=== PATIENT | female | born 2000 | race Hispanic/Latino ===

== ENCOUNTER 2022-08-24 20:41 | Emergency (ER) | payer SELFPAY ==
[~2022-08-24] VITALS: Ht 160 cm; Wt 55.6 kg
[2022-08-24 20:42] VITALS: BP 111/68; TEMP 97.6; O2SAT 99
== END 2022-08-24 22:03 | disposition left against medical advice (07) ==
LOC: M ED 20:41
DX: R04.0 Epistaxis (principal); Z53.21 Procedure and treatment not carried out due to patient leaving prior to being seen by health care provider

== ENCOUNTER 2023-05-27 02:44 | Inpatient (IN) | payer SELFPAY ==
[~2023-05-27] VITALS: Ht 160 cm; Wt 56.8 kg
[2023-05-27] MEDS ORDERED: ECOT81TA5 PO (03:02)
[2023-05-27 03:20] LABS: HEMATOCRIT 31.8 % (36.0-47.0); HEMOGLOBIN 9.4 g/dl (12.0-15.5); MEAN CORPUSCULAR HEMOGLOBIN 20.1 pg (27.0-33.0); MEAN CORPUSCULAR HGB CONC 29.6 g/dl (32.0-36.5); MEAN CORPUSCULAR VOLUME 67.9 fl (80.0-96.0); PLATELET COUNT, AUTOMATED 404 10^3/uL (150-450); RED BLOOD COUNT 4.68 10^6/uL (4.00-5.40); WHITE BLOOD COUNT 5.7 10^3/uL (4.0-10.0)
[2023-05-27 03:42] LABS: AMPHETAMINES LEVEL URINE NEGATIVE (NEGATIVE); BARBITURATES URINE NEGATIVE (NEGATIVE); BENZODIAZEPINES URINE NEGATIVE (NEGATIVE); CANNABINOIDS URINE NEGATIVE (NEGATIVE); COCAINE METABOLITE URINE NEGATIVE (NEGATIVE); METHADONE URINE NEGATIVE (NEGATIVE); OPIATES URINE NEGATIVE (NEGATIVE); PHENCYCLIDINE URINE NEGATIVE (NEGATIVE)
[2023-05-27 03:59] LABS: ALBUMIN 4.3 G/DL (3.2-5.2); ALKALINE PHOSPHATASE 118 U/L (46-116); ALT/SGPT 25 U/L (7.0-40); AST/SGOT 28 U/L (<34); BILIRUBIN,DIRECT 0.2 MG/DL (<0.4); BILIRUBIN,TOTAL 0.5 MG/DL (0.3-1.2); BLOOD UREA NITROGEN 6 MG/DL (9-23); CALCIUM LEVEL 8.7 MG/DL (8.5-10.1); CARBON DIOXIDE LEVEL 21 MMOL/L (20-31); CHLORIDE LEVEL 103 MMOL/L (98-107); CREATININE FOR GFR 0.47 MG/DL (0.55-1.30); GLOMERULAR FILTRATION RATE > 60.0 (>60); GLUCOSE, FASTING 92 MG/DL (60-100); POTASSIUM SERUM 3.6 MMOL/L (3.5-5.1); SALICYLATE LEVEL < 3.0 MG/DL (<30); SODIUM LEVEL 135 MMOL/L (136-145); THYROID STIMULATING HORMONE 1.696 uIU/ML (0.55-4.78)
[2023-05-27 07:55] LABS: HCG, SERUM QUALITATIVE NEGATIVE (NEGATIVE)
[2023-05-27] MEDS ORDERED: MAALOX 30 ML SUSP *UDC PO PRN (10:00)
[2023-05-27] MEDS ORDERED: IBUPROFEN 400MG TAB PO PRN (10:00)
[2023-05-27] MEDS ORDERED: LORazepam 2 MG TAB PO PRN (10:00)
[2023-05-27] MEDS ORDERED: diphenhydrAMINE 25MG CAP PO PRN (10:00)
[2023-05-27] MEDS ORDERED: MOM 30ML SUSPENSION UDC PO PRN (10:00)
[2023-05-27] MEDS ORDERED: ETON68IM SC (11:46)
[2023-05-27] MEDS ORDERED: HOME MED LIST COMPLETE! XX SCH (11:50)
[2023-05-27 11:54] VITALS: BP 100/52
[2023-05-27] MEDS: ONDANSETRON 4MG ORAL DISINTEGRATING TAB PO PRN (12:13)
[2023-05-27] MEDS: THIAMINE 100 MG TAB PO SCH (12:52)
[2023-05-27] MEDS: MULTIVITAMINS/MINERALS THERAP 1 TAB PO SCH (12:52)
[2023-05-27] MEDS: FOLIC ACID 1MG TAB PO SCH (12:52)
[2023-05-27 14:00] VITALS: BP 103/59
[2023-05-27 14:42] VITALS: BP 103/59; TEMP 98.8; O2SAT 97
[2023-05-27 21:46] VITALS: BP 103/64
[2023-05-28 06:21] VITALS: BP 99/62; TEMP 96.5; O2SAT 96
[2023-05-28] MEDS: NICOTINE 21MG/24HR 1 EA TRANSDERMAL TD SCH (08:54)
[2023-05-28] MEDS: NALTREXONE 50 MG TAB PO SCH (11:16)
[2023-05-28] MEDS: ACAMPROSATE CALCIUM 333MG TABLET (CAMPRAL) PO SCH (11:16)
[2023-05-28 14:15] VITALS: BP 99/62
[2023-05-28 18:30] VITALS: BP 108/66; TEMP 97.7; O2SAT 98
[2023-05-28 22:44] VITALS: BP 107/63
[2023-05-28] MEDS: traZODone 50 MG TAB PO PRN (23:00)
[2023-05-29 06:00] VITALS: BP 100/56; TEMP 96.7; O2SAT 100
[2023-05-29] MEDS ORDERED: diphenhydrAMINE 50MG CAP PO PRN (09:35)
[2023-05-29 14:00] VITALS: BP 100/56
[2023-05-29 16:24] VITALS: BP 122/68; TEMP 98; O2SAT 100
[2023-05-29] MEDS: RAMELTEON 8 MG TAB (ROZEREM) PO PRN (20:07)
[2023-05-29 22:30] VITALS: BP 115/77
[2023-05-30 06:28] VITALS: BP 103/58
[2023-05-30 06:35] VITALS: BP 103/58; TEMP 98.6; O2SAT 100
[2023-05-30] MEDS: ACETAMINOPHEN TAB 650MG DOSE (2X325MG) PO PRN (08:45)
[2023-05-30] MEDS ORDERED: ACAM0.05 PO (09:31)
[2023-05-30] MEDS ORDERED: RAME8TAB2 PO (09:31)
[2023-05-30] MEDS ORDERED: NALT50TA4 PO (09:31)
== END 2023-05-30 13:30 | disposition home or self-care (01) | DRG 756 ==
LOC: M ED 02:44 → M ED INP 09:57 → M PSY 11:34
PROVIDERS: ADMIT Student in an Organized Health Care Education/Training Program; ATTEND Student in an Organized Health Care Education/Training Program
DX: F41.9 Anxiety disorder, unspecified (principal); R45.851 Suicidal ideations; F32.A Depression, unspecified; F43.9 Reaction to severe stress, unspecified; F10.229 Alcohol dependence with intoxication, unspecified; F60.3 Borderline personality disorder; Z91.52 Personal history of nonsuicidal self-harm; Z62.810 Personal history of physical and sexual abuse in childhood; Z62.811 Personal history of psychological abuse in childhood; Z81.8 Family history of other mental and behavioral disorders; Z56.0 Unemployment, unspecified; Z79.899 Other long term (current) drug therapy

== ENCOUNTER 2024-09-25 23:55 | Emergency (ER) | payer OTHER, SELFPAY ==
[~2024-09-25] VITALS: Ht 165.1 cm; Wt 58.2 kg
[~2024-09-25 23:55] MED LIST: ACAM0.05 PO; ECOT81TA5 PO; ETON68IM SC; NALT50TA4 PO; RAME8TAB2 PO
[2024-09-26 00:47] LABS: BASO # 0.0 10^3/uL (0.0-0.2); BASO % 0.4 % (0.0-1.0); EOS # 0.0 10^3/uL (0.0-0.5); EOS % 0.9 % (0.0-3.0); LYMPH # 1.0 10^3/uL (1.5-5.0); LYMPH % 22.3 % (24.0-44.0); MONO # 0.5 10^3/uL (0.0-0.8); MONO % 10.6 % (2.0-8.0); NEUTROPHILS # 3.0 10^3/uL (1.5-8.5); NEUTROPHILS % 65.6 % (36.0-66.0); PLATELET COUNT, AUTOMATED 252 10^3/uL (150-450)
[2024-09-26 01:09] LABS: CALCIUM LEVEL 8.8 MG/DL (8.5-10.1); CARBON DIOXIDE LEVEL 21 MMOL/L (20-31); CHLORIDE LEVEL 107 MMOL/L (98-107); CK-MB VALUE MASS < 1.0 NG/ML (<3.6); CPK CREATINE PHOSPHOKINASE 54 U/L (34-145); CREATININE FOR GFR 0.69 MG/DL (0.55-1.30); GLOMERULAR FILTRATION RATE > 90.0 (>60); POTASSIUM SERUM 3.7 MMOL/L (3.5-5.1); SODIUM LEVEL 142 MMOL/L (136-145)
[2024-09-26] MEDS ORDERED: MORPHINE 4 MG/ML 1 ML VIAL IV PRN (01:20)
[2024-09-26] MEDS ORDERED: ISOVUE-370 76% 100 ML VIAL As Ordered ONE (01:24)
[2024-09-26 01:41] LABS: ETHYL ALCOHOL (ETHANOL) 0.003 % (0.000-0.010)
[2024-09-26 01:42] LABS: IRON (FE) 18 UG/DL (50-170); PERCENT SATURATION 4.9 % (13.2-45.0)
[2024-09-26] MEDS: ONDANSETRON 4MG 2ML VIAL IV ONE (02:14)
[2024-09-26 02:26] LABS: CK-MB VALUE MASS < 1.0 NG/ML (<3.6)
[2024-09-26 02:27] LABS: CPK CREATINE PHOSPHOKINASE 50 U/L (34-145)
[2024-09-26 04:47] VITALS: BP 123/72; TEMP 97.5; O2SAT 97
== END 2024-09-26 04:50 | disposition home or self-care (01) ==
LOC: M ED 23:55 → EDBD 23:55 → M ED 09-26 04:50
DX: R07.89 Other chest pain (principal); F41.9 Anxiety disorder, unspecified; F31.9 Bipolar disorder, unspecified; F17.210 Nicotine dependence, cigarettes, uncomplicated; F17.290 Nicotine dependence, other tobacco product, uncomplicated; F10.10 Alcohol abuse, uncomplicated; Z79.899 Other long term (current) drug therapy
CPT/HCPCS: 36415; 71045; 71275; 80048; 82077; 82550; 82553; 82728; 83550; 84484; 85025; 93005; 93041; 94760; 99285; Q9967

== ENCOUNTER 2025-01-03 10:40 | Emergency (ER) | payer OTHER ==
[~2025-01-03] VITALS: Ht 160 cm; Wt 60.2 kg
[2025-01-03] MEDS: LIDOCAINE W/EPINEPHrine 1% 20 ML VIAL SC ONE (11:35)
[2025-01-03] MEDS ORDERED: DOXY-441 PO (11:35)
[2025-01-03 11:36] VITALS: BP 104/67; TEMP 97.4; O2SAT 97
== END 2025-01-03 12:01 | disposition home or self-care (01) ==
LOC: M ED 10:40
DX: L02.416 Cutaneous abscess of left lower limb (principal); F17.200 Nicotine dependence, unspecified, uncomplicated; F41.9 Anxiety disorder, unspecified; F32.A Depression, unspecified; Z87.42 Personal history of other diseases of the female genital tract; Z95.0 Presence of cardiac pacemaker; Z79.2 Long term (current) use of antibiotics

== ENCOUNTER 2025-03-05 13:50 | Emergency (ER) | payer OTHER, SELFPAY ==
[~2025-03-05] VITALS: Ht 160 cm; Wt 59.7 kg
[~2025-03-05 13:50] MED LIST changes: +DOXY-441 PO
[2025-03-05 14:39] LABS: BASO # 0.0 10^3/uL (0.0-0.2); BASO % 0.4 % (0.0-1.0); EOS # 0.0 10^3/uL (0.0-0.5); EOS % 0.6 % (0.0-3.0); LYMPH # 0.8 10^3/uL (1.5-5.0); LYMPH % 16.3 % (24.0-44.0); MONO # 0.4 10^3/uL (0.0-0.8); MONO % 7.8 % (2.0-8.0); NEUTROPHILS # 3.6 10^3/uL (1.5-8.5); NEUTROPHILS % 74.7 % (36.0-66.0); PLATELET COUNT, AUTOMATED 257 10^3/uL (150-450)
[2025-03-05 15:05] LABS: CALCIUM LEVEL 8.8 MG/DL (8.5-10.1); CARBON DIOXIDE LEVEL 23 MMOL/L (20-31); CHLORIDE LEVEL 105 MMOL/L (98-107); CREATININE FOR GFR 0.57 MG/DL (0.55-1.30); GLOMERULAR FILTRATION RATE > 90.0 (>60); HCG, SERUM QUALITATIVE NEGATIVE (NEGATIVE); POTASSIUM SERUM 4.0 MMOL/L (3.5-5.1); SODIUM LEVEL 138 MMOL/L (136-145)
[2025-03-05 15:23] LABS: CPK CREATINE PHOSPHOKINASE 57 U/L (34-145)
[2025-03-05 15:58] LABS: CK-MB VALUE MASS < 1.0 NG/ML (<3.6)
[2025-03-05 16:18] LABS: CK-MB VALUE MASS < 1.0 NG/ML (<3.6)
[2025-03-05 16:19] LABS: CPK CREATINE PHOSPHOKINASE 59 U/L (34-145)
[2025-03-05] MEDS: ACETAMINOPHEN 500 MG TAB PO ONE (16:44)
[2025-03-05] MEDS: IPRATROPIUM 0.5 MG/ALBUTEROL 2.5 MG INH SOL UD 3 ML NEB ONE (17:40)
[2025-03-05 17:53] VITALS: BP 116/63; TEMP 100.1; O2SAT 95
[2025-03-05] MEDS ORDERED: VENTAER INH (18:18)
== END 2025-03-05 18:35 | disposition home or self-care (01) ==
LOC: M ED 16:05
DX: J09.X2 Influenza due to identified novel influenza A virus with other respiratory manifestations (principal); I45.81 Long QT syndrome; Z79.52 Long term (current) use of systemic steroids; Z79.899 Other long term (current) drug therapy